=== PATIENT | male | born 1980 | race Hispanic/Latino ===

== ENCOUNTER 2021-09-15 18:33 | Emergency (ER) | payer MEDICARE ==
[2021-09-16] MEDS ORDERED: amLODIPine 5 MG TAB PO ONE (00:54)
--- NOTE | 2021-09-16 01:36 | Emergency Department Report ---
ED Medical Clearance HPI - General Chief complaint: Medical Clearance Stated complaint: HBP Time Seen by Provider: 09/16/21 00:53 Source: EMS Mode of arrival: Ambulatory - History of Present Illness Initial comments: Patient 41-year-old male with history of Hypertension and schizophrenia who presents for medical clearance for admission to [facility] for substance abuse treatment [facility]. Patient states noted hypertension upon admission screening tonight. Patient denies symptoms there is no chest pain or shortness of breath no nausea vomiting no dizziness or lightheadedness. Patient did not take amlodipine today which is his normal BP management. Patient does have a primary care doctor. MD Complaint: medical clearance request Home medications: Home Medications Medication Instructions Recorded Confirmed Last Taken Omeprazole [PriLOSEC] 07/04/15 Unknown Previous Rx's Medication Instructions Recorded Last Taken Type Ciprofloxacin HCl [Ciprofloxacin 500 mg PO Q12H #20 tab 08/05/15 Unknown Rx TAB] metroNIDAZOLE [Flagyl] 500 mg PO Q8HR #30 tablet 08/05/15 Unknown Rx HYDROcodone/APAP 5-325 [[place] 1 each PO Q6HR PRN #20 tablet 01/19/16 Unknown Rx 5-325 mg TAB] Omeprazole Magnesium [PriLOSEC] 10 mg PO QDAY #20 suspdr.pkt 01/19/16 Unknown Rx Promethazine [Phenergan] 25 mg PO Q6HR PRN #30 tab 01/19/16 Unknown Rx Allergies/Adverse reactions: Allergies Allergy/AdvReac Type Severity Reaction Status Date / Time diphenhydramine HCl Allergy Unknown Verified 07/04/15 17:21 [From Benadryl] ED Review of Systems ROS: Stated complaint: HBP Other details as noted in HPI Constitutional: denies: chills, fever Eyes: denies: eye pain, eye discharge, vision change ENT: denies: ear pain, throat pain Respiratory: denies: cough, shortness of breath, wheezing Cardiovascular: denies: chest pain, palpitations Endocrine: no symptoms reported Gastrointestinal: denies: abdominal pain, nausea, diarrhea Genitourinary: denies: urgency, dysuria Musculoskeletal: denies: back pain, joint swelling, arthralgia Skin: denies: rash, lesions Neurological: denies: headache, weakness, paresthesias, vertigo Psychiatric: as per HPI Hematological/Lymphatic: denies: easy bleeding, easy bruising ED Past Medical Hx - Past Medical History Previous Medical History?: Yes Hx Hypertension: Yes Hx Congestive Heart Failure: No Hx Diabetes: No Hx Asthma: No Hx COPD: No Hx HIV: No Additional medical history: pancreatitis, anemia GERD - Surgical History Past Surgical History?: Yes Hx Cholecystectomy: Yes - Social History Smoking Status: Current Some Day Smoker Substance Use Type: Alcohol, Marijuana - Medications Home Medications: Home Medications Medication Instructions Recorded Confirmed Last Taken Type Omeprazole [PriLOSEC] 07/04/15 Unknown History Ciprofloxacin HCl [Ciprofloxacin 500 mg PO Q12H #20 tab 08/05/15 Unknown Rx TAB] metroNIDAZOLE [Flagyl] 500 mg PO Q8HR #30 tablet 08/05/15 Unknown Rx HYDROcodone/APAP 5-325 [[place] 1 each PO Q6HR PRN #20 tablet 01/19/16 Unknown Rx 5-325 mg TAB] Omeprazole Magnesium [PriLOSEC] 10 mg PO QDAY #20 suspdr.pkt 01/19/16 Unknown Rx Promethazine [Phenergan] 25 mg PO Q6HR PRN #30 tab 01/19/16 Unknown Rx ED Physical Exam - General Limitations: No Limitations General appearance: alert, in no apparent distress - Head Head exam: Present: normocephalic, normal inspection - Eye Eye exam: Present: EOMI Pupils: Present: normal accommodation - ENT ENT exam: Present: mucous membranes moist - Neck Neck exam: Present: normal inspection, full ROM. Absent: tenderness, lymphadenopathy - Respiratory Respiratory exam: Present: normal lung sounds bilaterally. Absent: respiratory distress, wheezes, chest wall tenderness - Cardiovascular Cardiovascular Exam: Present: regular rate, normal rhythm, normal heart sounds. Absent: systolic murmur, diastolic murmur, rubs, gallop - GI/Abdominal GI/Abdominal exam: Present: soft, normal bowel sounds. Absent: distended, tenderness, guarding, rebound, rigid, bruit, hernia - Rectal Rectal exam: Present: deferred - Extremities Exam Extremities exam: Present: normal inspection, full ROM, normal capillary refill. Absent: tenderness - Back Exam Back exam: Present: normal inspection, full ROM. Absent: CVA tenderness (R), CVA tenderness (L) - Neurological Exam Neurological exam: Present: alert, oriented X3, CN II-XII intact, normal gait - Expanded Neurological Exam Expanded Patient oriented to: Present: person, place, time Speech: Present: fluid speech Best Eye Response (Felicity): (4) open spontaneously Best Motor Response (Felicity): (6) obeys commands Best Verbal Response (Felicity): (5) oriented Felicity Total: 15 - Psychiatric Psychiatric exam: Present: normal affect, normal mood - Skin Skin exam: Present: warm, dry, intact, normal color. Absent: rash ED Course Vital Signs 09/15/21 09/16/21 18:46 01:14 Temperature 98.8 F Pulse Rate 82 82 Respiratory 18 Rate Blood Pressure 123/91 Blood Pressure 140/90 [Right] O2 Sat by Pulse 99 Oximetry ED Medical Decision Making - Medical Decision Making This is asymptomatic hypertension. Patient advised to take medications as pres cribed. Patient advises that he has medication in his possession at [facility]. Patient has primary care doctor advised to follow-up with primary care doctor in 1 to 2 days. Patient verbalized agreement and understanding with discharge plan. Patient will be DC'd home in stable condition at this time. At present patient is alert oriented x3 amatory with steady gait has been no acute distress there is no chest pain or shortness of breath no dizziness no lightheadedness no fever or chills. ED Disposition Clinical Impression: Essential hypertension Disposition: 01 HOME / SELF CARE / HOMELESS Is pt being admited?: No Does the pt Need Aspirin: No Condition: Stable Instructions: Hypertension (ED), DASH Eating Plan, Managing Your Hypertension Additional Instructions: Take medications as prescribed, follow-up with your doctor in 1 to 2 days. Return to emergency department for symptoms worsen. Referrals: LISA BLEDSOE MD [Staff Physician] - 3-5 Days Forms: Work/School Release Form(ED) Time of Disposition: 01:38
[2021-09-16 02:05] VITALS: BP 140/90
== END 2021-09-16 02:05 | disposition home or self-care (01) ==
LOC: ED 18:33
DX: I10 Essential (primary) hypertension (principal); F17.200 Nicotine dependence, unspecified, uncomplicated; Z91.09 Other allergy status, other than to drugs and biological substances; Z79.899 Other long term (current) drug therapy
CPT/HCPCS: 99283

== ENCOUNTER 2021-10-10 09:46 | Inpatient (IN) | payer MEDICARE ==
[2021-10-10 12:02] LABS: Basophils % (Auto) 0.5 % (0.0-1.8); Eosinophils # (Auto) 0.1 K/mm3 (0.0-0.4); Hematocrit 36.6 % (35.5-45.6); Hemoglobin 12.4 gm/dl (11.8-15.2); Lymphocytes # (Auto) 0.9 K/mm3 (1.2-5.4); Lymphocytes % (Auto) 20.4 % (13.4-35.0); Mean Corpuscular HGB Conc 34 % (32-34); Mean Corpuscular Volume 84 fl (84-94); Monocytes # (Auto) 0.6 K/mm3 (0.0-0.8); Monocytes % (Auto) 13.1 % (0.0-7.3); Platelet Count 142 K/mm3 (140-440); Red Blood Count 4.37 M/mm3 (3.65-5.03); Red Cell Distribution Width 17.8 % (13.2-15.2)
[2021-10-10 12:28] LABS: Alanine Aminotransferase 14 units/L (7-56); BUN/Creatinine Ratio 11; Blood Urea Nitrogen 9 mg/dL (9-20); Calcium 8.9 mg/dL (8.4-10.2); Hemolysis Index 3
[2021-10-11] MEDS ORDERED: SODIUM CHLORIDE 0.9% 1000 ML 1,000 ML IV ONE ×2 (08:18→16:51)
[2021-10-11] MEDS ORDERED: metroNIDAZOLE/NS 500 MG/100 ML 500 MG/100 ML BAG IV ONE (15:38)
[2021-10-11] MEDS ORDERED: CEFEPIME/NS 2 GM/100 ML 2 GM/100 ML BAG IV ONE (15:38)
[2021-10-11] MEDS ORDERED: HYDROmorphone 1 MG/1 ML INJ IV ONE (15:39)
[2021-10-11] MEDS ORDERED: ONDANSETRON 4 MG/2 ML INJ IV ONE (15:39)
--- NOTE | 2021-10-11 16:32 | Cat Scan Report ---
CT abdomen pelvis w con INDICATION: abd pain 100ml of [id number] per pt Left sided abdomen/flank pain, has had history of pancreatitis befor e. COMPARISON: 06/02/2015 CT TECHNIQUE: Abdominal and pelvic CT exam performed. All CT scans at this location are performed using CT dose reduction for ALARA by means of automated exposure control. FINDINGS: CT ABDOMEN and PELVIS: Lung Bases: No significant abnormality. Liver: No significant abnormality. Biliary: No significant abnormality. Spleen: No significant abnormality. Pancreas: There are calcifications throughout the pancreatic parenchyma. The pancreatic duct is dilat ed within the head of the pancreas to the body measuring up to 7 mm in diameter. There is abrupt cut off of the dilation of the duct in the body, but there is more mild dilation seen within the tail of the pancreas. Note to atrophy. Pancreatic ductal dilation can be seen in setting of chronic pancreati tis. There is a surrounding multilobulated cystic collection seen superior to the pancreas extending to the lesser curvature of the stomach as seen on images 56-59 series 2. This collection appears to e xtend posteriorly and laterally posterior to the portal vein as well, image 56 of series 2. The colle ction measures approximately 5 cm in greatest dimension. Adrenals: No significant abnormality. Kidneys: No significant abnormality. Lymphatics: Only prominent loc hepatis and gastrohepatic lymph nodes, likely reactive. Vasculature: No significant abnormality. Bowel: Small sliding-type hiatal hernia. There is thickening of the rugae in the stomach with submuco darlene edema and mucosal hyperemia. Normal appendix. Diverticulosis without diverticulitis. Pelvis: No significant abnormality. Osseous Structures: No aggressive osseous lesion. Additional Findings: None IMPRESSION: 1. There is sequela of chronic pancreatitis with fluid collection seen superior to the pancreas which could represent a pseudocyst. Correlate clinically. Can obtain an EUS if indicated. If not, at least a follow to ensure stability is recommended. 2. Findings of possible gastritis which could be reactive. Signer Name: Carter Mcmillan MD Signed: 10/11/2021 4:27 PM Workstation Name: [id number]
--- NOTE | 2021-10-11 16:50 | Emergency Department Report ---
ED Abdominal Pain HPI - General Chief Complaint: Abdominal Pain Stated Complaint: ABD PAIN,NAUSEA/LEFT SIDE AND BACK PAIN PUI?: No Time Seen by Provider: 10/11/21 15:37 Source: patient Mode of arrival: Ambulatory Limitations: No Limitations - History of Present Illness Initial Comments: Patient is a 41-year-old male that comes to the emergency room complaining of severe left upper abdominal pain radiating to his back. He endorses nausea and vomiting. Patient does have a history of pancreatitis. He has not had any alcohol in over a month. However, he is diabetic. Patient is known to us and has been admitted here in the past. His medical history is also significant for hypertension and GERD. He denies diarrhea. He endorses chills but no fever. PCP Dr. Campos Home medications include Norvasc Omeprazole Cymbalta Gabapentin Magnesium Iron Creon which she has been out of for several months MD Complaint: abdominal pain -: Gradual, days(s) Location: LUQ Radiation: other Migration to: no migration (Left back) Severity scale (0 -10): 8 Consistency: constant Improves With: nothing Worsens With: nothing Associated Symptoms: denies other symptoms, nausea, vomiting. denies: diarrhea, fever, chills, constipation, dysuria, hematemesis, hematochezia, melena, hematur ia, anorexia, syncope - Related Data Home Medications Medication Instructions Recorded Confirmed Last Taken Omeprazole [PriLOSEC] 07/04/15 Unknown Previous Rx's Medication Instructions Recorded Last Taken Type Ciprofloxacin HCl [Ciprofloxacin 500 mg PO Q12H #20 tab 08/05/15 Unknown Rx TAB] metroNIDAZOLE [Flagyl] 500 mg PO Q8HR #30 tablet 08/05/15 Unknown Rx HYDROcodone/APAP 5-325 [[place] 1 each PO Q6HR PRN #20 tablet 01/19/16 Unknown Rx 5-325 mg TAB] Omeprazole Magnesium [PriLOSEC] 10 mg PO QDAY #20 suspdr.pkt 01/19/16 Unknown Rx Promethazine [Phenergan] 25 mg PO Q6HR PRN #30 tab 01/19/16 Unknown Rx Allergies Allergy/AdvReac Type Severity Reaction Status Date / Time diphenhydramine HCl Allergy Unknown Verified 07/04/15 17:21 [From Benadryl] ED Review of Systems ROS: Stated complaint: ABD PAIN,NAUSEA/LEFT SIDE AND BACK PAIN Other details as noted in HPI Comment: All other systems reviewed and negative ED Past Medical Hx - Past Medical History Previous Medical History?: Yes Hx Hypertension: Yes Hx CVA: No Hx Heart Attack/AMI: No Hx Congestive Heart Failure: No Hx Diabetes: No Hx Deep Vein Thrombosis: No Hx Pulmonary Embolism: No Hx GERD: Yes Hx Liver Disease: Yes Hx Renal Disease: No Hx of Cancer: No Hx Sickle Cell Disease: No Hx Arthritis: No Hx Headaches / Migraines: No Hx Seizures: No Hx Kidney Stones: No Hx Psychiatric Treatment: No Hx Asthma: No Hx COPD: No Hx Tuberculosis: No Hx Dementia: No Hx HIV: No Additional medical history: pancreatitis, anemia GERD - Surgical History Past Surgical History?: Yes Hx Cholecystectomy: Yes - Family History Family history: no significant - Social History Smoking Status: Current Every Day Smoker Substance Use Type: None - Medications Home Medications: Home Medications Medication Instructions Recorded Confirmed Last Taken Type Omeprazole [PriLOSEC] 07/04/15 Unknown History Ciprofloxacin HCl [Ciprofloxacin 500 mg PO Q12H #20 tab 08/05/15 Unknown Rx TAB] metroNIDAZOLE [Flagyl] 500 mg PO Q8HR #30 tablet 08/05/15 Unknown Rx HYDROcodone/APAP 5-325 [[place] 1 each PO Q6HR PRN #20 tablet 01/19/16 Unknown Rx 5-325 mg TAB] Omeprazole Magnesium [PriLOSEC] 10 mg PO QDAY #20 suspdr.pkt 01/19/16 Unknown Rx Promethazine [Phenergan] 25 mg PO Q6HR PRN #30 tab 01/19/16 Unknown Rx ED Physical Exam - General Limitations: No Limitations General appearance: alert, in no apparent distress - Head Head exam: Present: atraumatic, normocephalic - Eye Eye exam: Present: normal appearance - ENT ENT exam: Present: mucous membranes moist - Neck Neck exam: Present: normal inspection - Respiratory Respiratory exam: Present: normal lung sounds bilaterally. Absent: respiratory distress - Cardiovascular Cardiovascular Exam: Present: regular rate, normal rhythm. Absent: systolic murmur, diastolic murmur, rubs, gallop - GI/Abdominal GI/Abdominal exam: Present: soft, tenderness, normal bowel sounds - Rectal Rectal exam: Present: deferred - Extremities Exam Extremities exam: Present: normal inspection - Back Exam Back exam: Present: normal inspection - Neurological Exam Neurological exam: Present: alert, oriented X3 - Psychiatric Psychiatric exam: Present: normal affect, normal mood - Skin Skin exam: Present: warm, dry, intact, normal color. Absent: rash ED Course Vital Signs 10/10/21 10/11/21 10:48 08:01 Temperature 98.9 F 98.2 F Pulse Rate 90 87 Respiratory 14 18 Rate Blood Pressure 129/90 Blood Pressure 140/91 [Right] O2 Sat by Pulse 97 99 Oximetry ED Medical Decision Making - Lab Data Result diagrams: 10/10/21 11:39 10/10/21 11:39 - Radiology Data Radiology results: report reviewed, image reviewed see report - Medical Decision Making Vital Signs 10/10/21 10/11/21 10:48 08:01 Temperature 98.9 F 98.2 F Pulse Rate 90 87 Respiratory 14 18 Rate Blood Pressure 129/90 Blood Pressure 140/91 [Right] O2 Sat by Pulse 97 99 Oximetry Labs 10/10/21 10/10/21 11:39 11:39 WBC 4.6 RBC 4.37 Hgb 12.4 Hct 36.6 MCV 84 MCH 28 MCHC 34 RDW 17.8 H Plt Count 142 Lymph % (Auto) 20.4 [place] % (Auto) 13.1 H Eos % (Auto) 2.0 Baso % (Auto) 0.5 Lymph # (Auto) 0.9 L [place] # (Auto) 0.6 Eos # (Auto) 0.1 Baso # (Auto) 0.0 Seg Neutrophils % 64.0 Seg Neutrophils # 2.9 Sodium 138 Potassium 4.1 Chloride 101.8 Carbon Dioxide 27 Anion Gap 13 BUN 9 Creatinine 0.8 Estimated GFR > 60 BUN/Creatinine Ratio 11 Glucose 309 H Calcium 8.9 Total Bilirubin 0.20 AST 14 ALT 14 Alkaline Phosphatase 96 Total Protein 6.5 Albumin 4.0 Albumin/Globulin Ratio 1.6 Lipase 156 H Labs noted. Patient given a liter normal saline and Flagyl and cefepime per abdominal sepsis protocol. Patient medicated with Zofran for nausea. He has been given Dilaudid 1 mg for pain and is still complaining of pain [address] scan noted. Patient staffed with Dr. Sanchez. Patient being admitted for intractable abdominal pain. Orders placed. Patient to be kept NPO. Patient updated. - Differential Diagnosis pancreatitis Critical care attestation.: If time is entered above; I have spent that time in minutes in the direct care of this critically ill patient, excluding procedure time. ED Disposition Clinical Impression: Abdominal pain Qualifiers: Abdominal location: generalized Qualified Code(s): R10.84 - Generalized abdominal pain Acute pancreatitis Qualifiers: Pancreatitis type: other Nausea & vomiting Qualifiers: Vomiting type: unspecified Qualified Code(s): R11.2 - Nausea with vomiting, unspecified Disposition: 09 ADMITTED INPATIENT Is pt being admited?: Yes Does the pt Need Aspirin: No Condition: Stable Time of Disposition: 16:58
[2021-10-11] MEDS ORDERED: HYDROmorphone 1 MG/1 ML INJ IV PRN (16:52)
--- NOTE | 2021-10-11 22:51 | History and Physical Report ---
History of Present Illness Date of examination: 10/11/21 Date of admission: 10/11/2021 Chief complaint: Epigastric pain for 2 days History of present illness: 47-year-old male with history of recurrent pancreatitis since 2010 and pancreatic pseudocyst which was drained couple of years ago comes in for epigastric pain of 2 days duration. Associated with nausea. Pain is about 8 on a scale of 1-10 in nature. Patient was also tested for COVID-19 at urgent care center which was negative. Patient refused to have been drinking couple of times a week till 1 month ago. Patient states that he is alcohol free and wants to be alcohol free. - Past Medical History --Hypertension: Yes --GERD: Yes --Liver Disease: Yes --Additional medical history: pancreatitis, anemia GERD - Surgical History --Past Surgical History?: Yes --Cholecystectomy: Yes - Family History --Family history: no significant - Social History --Smoking Status: Current Every Day Smoker --Substance Use Type: None - Medications Home Medications: Home Medications Medication Instructions Recorded Confirmed Last Taken Type Omeprazole [PriLOSEC] 07/04/15 Unknown History Ciprofloxacin HCl [Ciprofloxacin 500 mg PO Q12H #20 tab 08/05/15 Unknown Rx TAB] metroNIDAZOLE [Flagyl] 500 mg PO Q8HR #30 tablet 08/05/15 Unknown Rx HYDROcodone/APAP 5-325 [[place] 1 each PO Q6HR PRN #20 tablet 01/19/16 Unknown Rx 5-325 mg TAB] Omeprazole Magnesium [PriLOSEC] 10 mg PO QDAY #20 suspdr.pkt 01/19/16 Unknown Rx Promethazine [Phenergan] 25 mg PO Q6HR PRN #30 tab 01/19/16 Unknown Rx Review of Systems ROS: Constitutional no weight loss or weight gain no fever or chills HEENT no sore throat no post nasal drip no diplopia Neck no neck stiffness no lymph gland enlargement Chest and lungs no shortness of breath cough or wheezing CVS no chest pain no diaphoresis no palpitations GI epigastric pain associated with nausea Genitourinary system no dysuria no flank pain Musculoskeletal system no muscle pains no joint pains [employer] no syncope no seizures Skin no rash no itching Psychiatric no depression no homicidal or suicidal tendencies Hematologic no lymphedema or bruising Endocrine no polydipsia no polyuria no cold intolerance no heat intolerance Medications and Allergies Allergies Allergy/AdvReac Type Severity Reaction Status Date / Time diphenhydramine HCl Allergy Unknown Verified 07/04/15 17:21 [From [facility]] Home Medications Medication Instructions Recorded Confirmed Last Taken Type Omeprazole [PriLOSEC] 07/04/15 Unknown History Ciprofloxacin HCl [Ciprofloxacin 500 mg PO Q12H #20 tab 08/05/15 Unknown Rx TAB] metroNIDAZOLE [Flagyl] 500 mg PO Q8HR #30 tablet 08/05/15 Unknown Rx HYDROcodone/APAP 5-325 [[place] 1 each PO Q6HR PRN #20 tablet 01/19/16 Unknown Rx 5-325 mg TAB] Omeprazole Magnesium [PriLOSEC] 10 mg PO QDAY #20 suspdr.pkt 01/19/16 Unknown Rx Promethazine [Phenergan] 25 mg PO Q6HR PRN #30 tab 01/19/16 Unknown Rx Active Meds: Active Medications Hydromorphone HCl (Hydromorphone 1 Mg/1 Ml Inj) 0.5 mg IV Q3H PRN PRN Reason: Pain, Moderate (4-6) Sodium Chloride (Nacl 0.9% 1000 Ml) 1,000 mls @ 125 mls/hr IV ONCE ONE Stop: 10/12/21 00:50 Sodium Chloride (Nacl 0.9% 1000 Ml) 1,000 mls @ 125 mls/hr IV DIRECT JOSHUA Exam - Constitutional Vitals: Temp Pulse Resp BP Pulse Ox 98.2 F 87 18 140/91 99 10/11/21 08:01 10/11/21 08:01 10/11/21 08:01 10/11/21 08:01 10/11/21 08:01 General appearance: Present: no acute distress, well-nourished - EENT Eyes: Present: PERRL ENT: hearing intact, clear oral mucosa - Neck Neck: Present: supple, normal ROM - Respiratory Respiratory effort: normal Respiratory: bilateral: CTA - Cardiovascular Heart rate: 78 Rhythm: regular Heart Sounds: Present: S1 & S2. Absent: rub, click - Extremities Extremities: pulses symmetrical, No edema Peripheral Pulses: within normal limits - Abdominal General gastrointestinal: Present: soft, tender, non-distended, normal bowel sounds Localized gastrointestinal: tender: diffuse, guarding: diffuse Male genitourinary: Present: normal - Integumentary Integumentary: Present: clear, warm, dry - Musculoskeletal Musculoskeletal: gait normal, strength equal bilaterally - Psychiatric Psychiatric: appropriate mood/affect, intact judgment & insight - Neurologic Neurologic: CNII-XII intact, moves all extremities Results - Labs CBC & Chem 7: 10/12/21 03:25 10/12/21 03:25 Labs: Laboratory Last Values WBC 4.6 K/mm3 (4.5-11.0) 10/10/21 11:39 RBC 4.37 M/mm3 (3.65-5.03) 10/10/21 11:39 Hgb 12.4 gm/dl (11.8-15.2) 10/10/21 11:39 Hct 36.6 % (35.5-45.6) 10/10/21 11:39 MCV 84 fl (84-94) 10/10/21 11:39 MCH 28 pg (28-32) 10/10/21 11:39 MCHC 34 % (32-34) 10/10/21 11:39 RDW 17.8 % (13.2-15.2) H 10/10/21 11:39 Plt Count 142 K/mm3 (140-440) 10/10/21 11:39 Lymph % (Auto) 20.4 % (13.4-35.0) 10/10/21 11:39 [place] % (Auto) 13.1 % (0.0-7.3) H 10/10/21 11:39 Eos % (Auto) 2.0 % (0.0-4.3) 10/10/21 11:39 Baso % (Auto) 0.5 % (0.0-1.8) 10/10/21 11:39 Lymph # (Auto) 0.9 K/mm3 (1.2-5.4) L 10/10/21 11:39 [place] # (Auto) 0.6 K/mm3 (0.0-0.8) 10/10/21 11:39 Eos # (Auto) 0.1 K/mm3 (0.0-0.4) 10/10/21 11:39 Baso # (Auto) 0.0 K/mm3 (0.0-0.1) 10/10/21 11:39 Seg Neutrophils % 64.0 % (40.0-70.0) 10/10/21 11:39 Seg Neutrophils # 2.9 K/mm3 (1.8-7.7) 10/10/21 11:39 Sodium 138 mmol/L (137-145) 10/10/21 11:39 Potassium 4.1 mmol/L (3.6-5.0) 10/10/21 11:39 Chloride 101.8 mmol/L (98-107) 10/10/21 11:39 Carbon Dioxide 27 mmol/L (22-30) 10/10/21 11:39 Anion Gap 13 mmol/L 10/10/21 11:39 BUN 9 mg/dL (9-20) 10/10/21 11:39 Creatinine 0.8 mg/dL (0.8-1.3) 10/10/21 11:39 Estimated GFR > 60 ml/min 10/10/21 11:39 BUN/Creatinine Ratio 11 % 10/10/21 11:39 Glucose 309 mg/dL (75-100) H 10/10/21 11:39 Calcium 8.9 mg/dL (8.4-10.2) 10/10/21 11:39 Total Bilirubin 0.20 mg/dL (0.1-1.2) 10/10/21 11:39 AST 14 units/L (5-40) 10/10/21 11:39 ALT 14 units/L (7-56) 10/10/21 11:39 Alkaline Phosphatase 96 units/L (35-129) 10/10/21 11:39 Total Protein 6.5 g/dL (6.3-8.2) 10/10/21 11:39 Albumin 4.0 g/dL (3.9-5) 10/10/21 11:39 Albumin/Globulin Ratio 1.6 % 10/10/21 11:39 Lipase 156 units/L (13-60) H 10/10/21 11:39 - Imaging and Cardiology Imaging and Cardiology: CT of the abdomen There is sequelae of chronic pancreatitis with fluid collection seen superior to the pancreas without finger accounting representative pseudocyst Assessment and Plan Advance Directives: Yes (Full code) VTE prophylaxis?: Chemical Plan of care discussed with patient/family: Yes - Patient Problems (1) Acute pancreatitis Current Visit: Yes Status: Acute Qualifiers: Pancreatitis type: unspecified pancreatitis type Plan to address problem: Patient has a history of alcoholism Stopped alcohol 1 month ago Clinical picture and imaging studies consistent with acute on chronic pancreatitis N.p.o. for now Pain management (2) Hyperglycemia Current Visit: Yes Status: Acute Plan to address problem: Coverage and check hemoglobin A1c (3) DVT prophylaxis Current Visit: Yes Status: Acute Plan to address problem: On heparin and GI prophylaxis (4) Advance care planning Current Visit: Yes Status: Acute Plan to address problem: Disease education conducted, care plan discussed, diagnosis discussed. Prognosis discussed. Patient acknowledged understanding and is 30 minutes.
[2021-10-11] MEDS ORDERED: ACETAMINOPHEN 325 MG TAB PO PRN (22:54)
[2021-10-11] MEDS ORDERED: METOCLOPRAMIDE 10 MG/2 ML INJ IV PRN (22:54)
[2021-10-11] MEDS: HEPARIN 5,000 UNIT/1 ML VIAL SUB-Q SCH (23:19)
[2021-10-11] MEDS: ONDANSETRON 4 MG/2 ML INJ IV PRN (23:20)
[2021-10-11] MEDS: HYDROmorphone 0.5 MG/0.5 ML INJ IV PRN (23:20)
[2021-10-12] MEDS ORDERED: INSULIN LISPRO 100 UNIT/ML SUB-Q ONE (00:35)
[2021-10-12 04:01] LABS: Basophils % (Auto) 0.5 % (0.0-1.8); Eosinophils # (Auto) 0.1 K/mm3 (0.0-0.4); Eosinophils % (Auto) 2.7 % (0.0-4.3); Hematocrit 36.5 % (35.5-45.6); Hemoglobin 12.2 gm/dl (11.8-15.2); Lymphocytes # (Auto) 1.1 K/mm3 (1.2-5.4); Lymphocytes % (Auto) 26.4 % (13.4-35.0); Mean Corpuscular HGB Conc 34 % (32-34); Mean Corpuscular Volume 84 fl (84-94); Monocytes # (Auto) 0.5 K/mm3 (0.0-0.8); Monocytes % (Auto) 11.6 % (0.0-7.3); Platelet Count 141 K/mm3 (140-440); Red Blood Count 4.36 M/mm3 (3.65-5.03)
[2021-10-12 04:18] LABS: Alanine Aminotransferase 10 units/L (7-56); Albumin 3.7 g/dL (3.9-5); Blood Urea Nitrogen 9 mg/dL (9-20); Calcium 8.9 mg/dL (8.4-10.2); Hemolysis Index 7
[2021-10-12 04:19] LABS: BUN/Creatinine Ratio 15
[2021-10-12] MEDS: ONDANSETRON 4 MG/2 ML INJ IV PRN (08:03)
[2021-10-12] MEDS: HYDROmorphone 0.5 MG/0.5 ML INJ IV PRN ×3 (08:04→21:11)
[2021-10-12] MEDS: SODIUM CHLORIDE 0.9% 1000 ML 1,000 ML IV SCH ×2 (08:05→17:42)
[2021-10-12] MEDS: HEPARIN 5,000 UNIT/1 ML VIAL SUB-Q SCH ×2 (10:14→21:11)
--- NOTE | 2021-10-12 13:53 | Consultation ---
History of Present Illness Consult date: 10/12/21 Reason for consult: abdominal pain - History of present illness History of present illness: 47-year-old male with history of recurrent pancreatitis since 2010 and pancreatic pseudocyst which was drained 2019 comes in for epigastric pain of 2 days duration. Associated with nausea. Pain is about 8 on a scale of 1-10 in nature. Patient was also tested for COVID-19 at urgent care center which was negative. Patient refused to have been drinking couple of times a week till 1 month ago. Patient states that he is alcohol free and wants to be alcohol free. He states that he had gallstone pancreatitis in the past and had a LC about 2014. CT of abdo with pancreatitis and new pseudocyst in the tail of the pancrease. Medications and Allergies Allergies Allergy/AdvReac Type Severity Reaction Status Date / Time diphenhydramine HCl Allergy Unknown Verified 07/04/15 17:21 [From [facility]] Home Medications Medication Instructions Recorded Confirmed Last Taken Type Omeprazole [PriLOSEC] 07/04/15 Unknown History Ciprofloxacin HCl [Ciprofloxacin 500 mg PO Q12H #20 tab 08/05/15 Unknown Rx TAB] metroNIDAZOLE [Flagyl] 500 mg PO Q8HR #30 tablet 08/05/15 Unknown Rx HYDROcodone/APAP 5-325 [[place] 1 each PO Q6HR PRN #20 tablet 01/19/16 Unknown Rx 5-325 mg TAB] Omeprazole Magnesium [PriLOSEC] 10 mg PO QDAY #20 suspdr.pkt 01/19/16 Unknown Rx Promethazine [Phenergan] 25 mg PO Q6HR PRN #30 tab 01/19/16 Unknown Rx Active Meds: Active Medications Acetaminophen (Acetaminophen 325 Mg Tab) 650 mg PO Q4H PRN PRN Reason: Pain MILD(1-3)/Fever >100.5/MELENDEZ Heparin Sodium (Porcine) (Heparin 5,000 Unit/1 Ml Vial) 5,000 unit SUB-Q Q12HR JOSHUA Last Admin: 10/12/21 10:14 Dose: 5,000 unit Hydromorphone HCl (Hydromorphone 1 Mg/1 Ml Inj) 0.5 mg IV Q3H PRN PRN Reason: Pain, Moderate (4-6) Hydromorphone HCl (Hydromorphone 0.5 Mg/0.5 Ml Inj) 1 mg IV Q3H PRN PRN Reason: Pain , Severe (7-10) Last Admin: 10/12/21 13:02 Dose: 1 mg Sodium Chloride (Nacl 0.9% 1000 Ml) 1,000 mls @ 125 mls/hr IV DIRECT JOSHUA Last Admin: 10/12/21 08:05 Dose: 125 mls/hr Metoclopramide HCl (Metoclopramide 10 Mg/2 Ml Inj) 10 mg IV Q6H PRN PRN Reason: Nausea And Vomiting Last Admin: 10/11/21 23:20 Dose: 10 mg Ondansetron HCl (Ondansetron 4 Mg/2 Ml Inj) 4 mg IV Q3H PRN PRN Reason: Nausea And Vomiting Last Admin: 10/12/21 08:03 Dose: 4 mg Oxycodone/Acetaminophen (Oxycodone /Acetaminophen 5-325mg Tab) 1 tab PO Q6H PRN PRN Reason: Pain, Moderate (4-6) Sodium Chloride (Sodium Chloride 0.9% 10 Ml Flush Syringe) 10 ml IV BID [facility] Last Admin: 10/12/21 10:15 Dose: 10 ml Sodium Chloride (Sodium Chloride 0.9% 10 Ml Flush Syringe) 10 ml IV PRN PRN PRN Reason: LINE FLUSH Exam Vital Signs Temp Pulse Resp BP Pulse Ox 98.9 F 90 14 129/90 97 10/10/21 10:48 10/10/21 10:48 10/10/21 10:48 10/10/21 10:48 10/10/21 10:48 - General physical appearance Positive: well developed, no distress - Eyes Positive: PERRL - Neck Positive: no masses, no bruits, trachea midline - Respiratory Positive: normal expansion - Cardiovascular Rhythm: regular - Extremities Extremities: no ischemia, No edema - Abdomen Abdomen: Present: soft, tender, bowel sounds normal, wound (Upper midline wund pt states is from open cyst gastrostomy). Absent: distended, guarding, rigid Hernia: none - Neurologic Neurologic: alert and oriented to time, place and person, motor strength and sensation are grossly intact, CN II-XII intact Results - Labs 10/12/21 03:25 10/12/21 03:25 Abnormal lab results 10/12/21 10/12/21 Range/Units 03:25 03:25 WBC 4.2 L (4.5-11.0) K/mm3 RDW 18.0 H (13.2-15.2) % Lane % (Auto) 11.6 H (0.0-7.3) % Lymph # (Auto) 1.1 L (1.2-5.4) K/mm3 Creatinine 0.6 L (0.8-1.3) mg/dL Glucose 126 H (75-100) mg/dL Albumin 3.7 L (3.9-5) g/dL Diabetes panel 10/12/21 Range/Units 03:25 Sodium 141 (137-145) mmol/L Potassium 4.1 (3.6-5.0) mmol/L Chloride 103.3 (98-107) mmol/L Carbon Dioxide 27 (22-30) mmol/L BUN 9 (9-20) mg/dL Creatinine 0.6 L (0.8-1.3) mg/dL Glucose 126 H (75-100) mg/dL Calcium 8.9 (8.4-10.2) mg/dL AST 13 (5-40) units/L ALT 10 (7-56) units/L Alkaline Phosphatase 79 (35-129) units/L Total Protein 6.8 (6.3-8.2) g/dL Albumin 3.7 L (3.9-5) g/dL Calcium panel 10/12/21 Range/Units 03:25 Calcium 8.9 (8.4-10.2) mg/dL Albumin 3.7 L (3.9-5) g/dL Pituitary panel 10/12/21 Range/Units 03:25 Sodium 141 (137-145) mmol/L Potassium 4.1 (3.6-5.0) mmol/L Chloride 103.3 (98-107) mmol/L Carbon Dioxide 27 (22-30) mmol/L BUN 9 (9-20) mg/dL Creatinine 0.6 L (0.8-1.3) mg/dL Glucose 126 H (75-100) mg/dL Calcium 8.9 (8.4-10.2) mg/dL Adrenal panel 10/12/21 Range/Units 03:25 Sodium 141 (137-145) mmol/L Potassium 4.1 (3.6-5.0) mmol/L Chloride 103.3 (98-107) mmol/L Carbon Dioxide 27 (22-30) mmol/L BUN 9 (9-20) mg/dL Creatinine 0.6 L (0.8-1.3) mg/dL Glucose 126 H (75-100) mg/dL Calcium 8.9 (8.4-10.2) mg/dL Total Bilirubin 0.40 (0.1-1.2) mg/dL AST 13 (5-40) units/L ALT 10 (7-56) units/L Alkaline Phosphatase 79 (35-129) units/L Total Protein 6.8 (6.3-8.2) g/dL Albumin 3.7 L (3.9-5) g/dL Assessment and Plan CT of abdo with pancreatitis and new pseudocyst in the tail of the pancrease. Cont npo, ivf, consider GI consultation. No surgical options available at this time.
[2021-10-12] MEDS: FAMOTIDINE 20 MG/2 ML INJ IV SCH ×2 (17:35→21:11)
[2021-10-13] MEDS: SODIUM CHLORIDE 0.9% 1000 ML 1,000 ML IV SCH ×2 (01:24→17:53)
[2021-10-13] MEDS: HYDROmorphone 0.5 MG/0.5 ML INJ IV PRN ×5 (01:27→22:15)
--- NOTE | 2021-10-13 08:39 | Progress Note ---
Assessment and Plan - Patient Problems (1) Acute pancreatitis Current Visit: Yes Status: Acute Qualifiers: Pancreatitis type: unspecified pancreatitis type Plan to address problem: Patient has a history of alcoholism Stopped alcohol 1 month ago Clinical picture and imaging studies consistent with acute on chronic pancrea titis N.p.o. for now Pain management (2) Hyperglycemia Current Visit: Yes Status: Acute Plan to address problem: Coverage and check hemoglobin A1c (3) DVT prophylaxis Current Visit: Yes Status: Acute Plan to address problem: On heparin and GI prophylaxis (4) Advance care planning Current Visit: Yes Status: Acute Plan to address problem: Disease education conducted, care plan discussed, diagnosis discussed. P rognosis discussed. Patient acknowledged understanding and is 30 minutes. Subjective Date of service: 10/12/21 Objective - Constitutional Vitals: Vital Signs - 12hr 10/12/21 10/13/21 10/13/21 22:11 00:00 03:09 Temperature 97.9 F 97.5 F L Pulse Rate 57 L 70 Respiratory 16 16 Rate Blood Pressure 130/94 141/85 O2 Sat by Pulse 100 98 99 Oximetry 10/13/21 07:48 Temperature Pulse Rate Respiratory 18 Rate Blood Pressure O2 Sat by Pulse 97 Oximetry General appearance: Present: no acute distress, well-nourished - EENT Eyes: PERRL, EOM intact ENT: hearing intact, clear oral mucosa Ears: bilateral: normal - Neck Neck: supple, normal ROM - Respiratory Respiratory effort: normal Respiratory: bilateral: CTA - Breasts Breasts: normal - Cardiovascular Rhythm: regular Heart Sounds: Present: S1 & S2. Absent: gallop, rub Extremities: pulses intact, No edema, normal color, Full ROM - Gastrointestinal General gastrointestinal: Present: soft, non-tender, non-distended, normal bowel sounds - Genitourinary Male genitourinary: normal - Integumentary Integumentary: clear, warm, dry - Musculoskeletal Musculoskeletal: 1, strength equal bilaterally - Neurologic Neurologic: moves all extremities - Psychiatric Psychiatric: memory intact, appropriate mood/affect, intact judgment & insight - Labs CBC & Chem 7: 10/12/21 03:25 10/12/21 03:25
[2021-10-13] MEDS: FAMOTIDINE 20 MG/2 ML INJ IV SCH ×2 (09:26→21:44)
[2021-10-13] MEDS: HEPARIN 5,000 UNIT/1 ML VIAL SUB-Q SCH ×2 (09:26→21:44)
[2021-10-13] MEDS: ONDANSETRON 4 MG/2 ML INJ IV PRN (09:39)
[2021-10-14] MEDS: HYDROmorphone 0.5 MG/0.5 ML INJ IV PRN ×7 (02:00→23:25)
[2021-10-14] MEDS: SODIUM CHLORIDE 0.9% 1000 ML 1,000 ML IV SCH ×4 (02:07→16:54)
[2021-10-14] MEDS: FAMOTIDINE 20 MG/2 ML INJ IV SCH ×2 (09:32→22:33)
[2021-10-14] MEDS: HEPARIN 5,000 UNIT/1 ML VIAL SUB-Q SCH ×2 (09:32→22:34)
--- NOTE | 2021-10-14 11:06 | Progress Note ---
Assessment and Plan CT of abdo with pancreatitis and new pseudocyst in the tail of the pancrease. Lipase is normal at this time. Patient's pain is improved. Okay to advance to diabetic diet at this time. Also appropriate to consider discharging patient fo r follow-up with a pancreatic surgeon. Subjective Date of service: 10/14/21 Patient Reports: Positive: feels better, still having pain Objective Vital Signs - 12hr 10/13/21 10/14/21 10/14/21 23:24 04:04 08:10 Temperature 98.3 F 97.7 F 97.5 F L Pulse Rate 55 L 54 L 60 Respiratory 15 16 18 Rate Blood Pressure 128/88 143/91 139/102 O2 Sat by Pulse 96 98 100 Oximetry - Labs 10/12/21 03:25 10/12/21 03:25
[2021-10-14] MEDS: ONDANSETRON 4 MG/2 ML INJ IV PRN (12:54)
[2021-10-15] MEDS: SODIUM CHLORIDE 0.9% 1000 ML 1,000 ML IV SCH ×3 (00:38→14:18)
[2021-10-15] MEDS: HYDROmorphone 0.5 MG/0.5 ML INJ IV PRN ×6 (02:59→23:55)
--- NOTE | 2021-10-15 07:51 | Progress Note ---
Assessment and Plan - Patient Problems (1) Acute pancreatitis Current Visit: Yes Status: Acute Qualifiers: Pancreatitis type: unspecified pancreatitis type Plan to address problem: Patient has a history of alcoholism Stopped alcohol 1 month ago Clinical picture and imaging studies consistent with acute on chronic pancrea titis N.p.o. for now Pain management (2) Hyperglycemia Current Visit: Yes Status: Acute Plan to address problem: Coverage and check hemoglobin A1c (3) DVT prophylaxis Current Visit: Yes Status: Acute Plan to address problem: On heparin and GI prophylaxis (4) Advance care planning Current Visit: Yes Status: Acute Plan to address problem: Disease education conducted, care plan discussed, diagnosis discussed. P rognosis discussed. Patient acknowledged understanding and is 30 minutes. Subjective Date of service: 10/14/21 Objective - Constitutional Vitals: Vital Signs - 12hr 10/14/21 23:00 Respiratory 18 Rate O2 Sat by Pulse 98 Oximetry General appearance: Present: no acute distress, well-nourished - EENT Eyes: PERRL, EOM intact ENT: hearing intact, clear oral mucosa Ears: bilateral: normal - Neck Neck: supple, normal ROM - Respiratory Respiratory effort: normal Respiratory: bilateral: CTA - Breasts Breasts: normal - Cardiovascular Rhythm: regular Heart Sounds: Present: S1 & S2. Absent: gallop, rub Extremities: pulses intact, No edema, normal color, Full ROM - Gastrointestinal General gastrointestinal: Present: soft, non-tender, non-distended, normal bowel sounds - Genitourinary Male genitourinary: normal - Integumentary Integumentary: clear, warm, dry - Musculoskeletal Musculoskeletal: 1, strength equal bilaterally - Neurologic Neurologic: moves all extremities - Psychiatric Psychiatric: memory intact, appropriate mood/affect, intact judgment & insight - Labs CBC & Chem 7: 10/12/21 03:25 10/12/21 03:25 Labs: Abnormal lab results 10/14/21 10/14/21 10/14/21 Range/Units 08:10 12:06 16:45 POC Glucose 144 H 126 H 109 H (70-105) mg/dL 10/14/21 10/15/21 Range/Units 22:57 07:40 POC Glucose 115 H 112 H (70-105) mg/dL
--- NOTE | 2021-10-15 10:29 | Progress Note ---
Assessment and Plan CT of abdo with pancreatitis and new pseudocyst in the tail of the pancrease. Lipase is normal at this time. Patient has tried is soft diet this morning. He denied any increasing pain in the pancreatic area. He does have some unusual p ain in the left subcostal area. There is also continued back pain. There is also generalized feeling of weakness. Patient states that he did test positive for COVID as an outpatient about a month ago. He also states that about a week ago he had a vaccination for COVID. This was his first. Consider retesting the patient at this time. Also appropriate to consider discharging patient for follow-up with a pancreatic surgeon. Subjective Date of service: 10/15/21 Patient Reports: Positive: still having pain Narrative: Patient has tried is soft diet this morning. He denied any increasing pain in the pancreatic area. He does have some unusual pain in the left subcostal area. There is also continued back pain. There is also generalized feeling of weakness. Patient states that he did test positive for COVID as an outpatient about a month ago. He also states that about a week ago he had a vaccination for COVID. This was his first. Consider retesting the patient at this time. Objective Vital Signs - 12hr 10/14/21 10/15/21 10/15/21 23:00 06:41 07:42 Temperature 97.7 F Pulse Rate 55 L 72 Respiratory 18 18 Rate Blood Pressure 140/89 143/93 O2 Sat by Pulse 98 100 100 Oximetry - Labs 10/12/21 03:25 10/12/21 03:25
[2021-10-15] MEDS: HEPARIN 5,000 UNIT/1 ML VIAL SUB-Q SCH ×2 (10:37→21:01)
[2021-10-15] MEDS: FAMOTIDINE 20 MG TAB PO SCH ×2 (10:38→21:01)
--- NOTE | 2021-10-15 22:40 | Progress Note ---
Assessment and Plan - Patient Problems (1) Acute pancreatitis Current Visit: Yes Status: Acute Qualifiers: Pancreatitis type: unspecified pancreatitis type Plan to address problem: Patient has a history of alcoholism Stopped alcohol 1 month ago Clinical picture and imaging studies consistent with acute on chronic pancrea titis N.p.o. for now Pain management (2) Hyperglycemia Current Visit: Yes Status: Acute Plan to address problem: Coverage and check hemoglobin A1c (3) DVT prophylaxis Current Visit: Yes Status: Acute Plan to address problem: On heparin and GI prophylaxis (4) Advance care planning Current Visit: Yes Status: Acute Plan to address problem: Disease education conducted, care plan discussed, diagnosis discussed. P rognosis discussed. Patient acknowledged understanding and is 30 minutes. Subjective Date of service: 10/15/21 Objective - Constitutional Vitals: Vital Signs - 12hr 10/15/21 10/15/21 10/15/21 11:00 11:37 16:11 Temperature 97.6 F 97.6 F Pulse Rate 63 58 L Respiratory 18 18 18 Rate Blood Pressure 144/88 149/93 O2 Sat by Pulse 100 100 99 Oximetry 10/15/21 19:28 Temperature 97.6 F Pulse Rate 60 Respiratory 16 Rate Blood Pressure 147/94 O2 Sat by Pulse 97 Oximetry General appearance: Present: no acute distress, well-nourished - EENT Eyes: PERRL, EOM intact ENT: hearing intact, clear oral mucosa Ears: bilateral: normal - Neck Neck: supple, normal ROM - Respiratory Respiratory effort: normal Respiratory: bilateral: CTA - Breasts Breasts: normal - Cardiovascular Rhythm: regular Heart Sounds: Present: S1 & S2. Absent: gallop, rub Extremities: pulses intact, No edema, normal color, Full ROM - Gastrointestinal General gastrointestinal: Present: soft, non-tender, non-distended, normal bowel sounds - Genitourinary Male genitourinary: normal - Integumentary Integumentary: clear, warm, dry - Musculoskeletal Musculoskeletal: 1, strength equal bilaterally - Neurologic Neurologic: moves all extremities - Psychiatric Psychiatric: memory intact, appropriate mood/affect, intact judgment & insight - Labs CBC & Chem 7: 10/12/21 03:25 10/12/21 03:25 Labs: Abnormal lab results 10/14/21 10/15/21 10/15/21 Range/Units 22:57 07:40 11:35 POC Glucose 115 H 112 H 126 H (70-105) mg/dL 10/15/21 10/15/21 Range/Units 16:13 20:09 POC Glucose 160 H 166 H (70-105) mg/dL
--- NOTE | 2021-10-15 22:42 | Discharge Summary ---
Providers - Providers Date of Admission: 10/11/21 22:54 Date of discharge: 10/16/21 Attending physician: ROBB ECHEVERRIA 10/11/21 23:15 Consult to Physician [CONS] Routine Comment: Consulting Provider: ADINA BENOIT Physician Instructions: Reason For Exam: Pseudocyst of pancreas Primary care physician: [employer]ES LEADER Hospitalization Condition: Stable Disposition: 30 STILL A PATIENT - Discharge Diagnoses (1) Acute pancreatitis Status: Acute Qualifiers: Pancreatitis type: unspecified pancreatitis type (2) Hyperglycemia Status: Acute (3) DVT prophylaxis Status: Acute (4) Advance care planning Status: Acute Exam - Constitutional Vitals: Temp Pulse Resp BP Pulse Ox 97.6 F 60 16 147/94 97 10/15/21 19:28 10/15/21 19:28 10/15/21 19:28 10/15/21 19:28 10/15/21 19:28 Plan Follow up with: PRIMARY MD ANITA [Primary Care Provider] - 3-5 Days
[2021-10-16] MEDS: SODIUM CHLORIDE 0.9% 1000 ML 1,000 ML IV SCH ×2 (00:01→05:33)
[2021-10-16] MEDS: HYDROmorphone 0.5 MG/0.5 ML INJ IV PRN ×3 (03:07→10:30)
[2021-10-16] MEDS: oxyCODONE /ACETAMINOPHEN 5-325MG TAB PO PRN ×2 (05:05→13:17)
--- NOTE | 2021-10-16 07:19 | Progress Note ---
Assessment and Plan CT of abdo with pancreatitis and new pseudocyst in the tail of the pancrease. Lipase is normal at this time. Patient has tried is soft diet this morning. He denied any increasing pain in the pancreatic area. He does have some unusual p ain in the left subcostal area. There is also continued back pain. There is also generalized feeling of weakness. Patient states that he did test positive for COVID as an outpatient about a month ago. He also states that about a week ago he had a vaccination for COVID. This was his first. Consider retesting the patient at this time. Also appropriate to consider discharging patient for follow-up with a pancreatic surgeon. Subjective Date of service: 10/16/21 Patient Reports: Positive: no new complaints, still having pain, pain is less, tolerating a regular diet Objective Vital Signs - 12hr 10/15/21 10/15/21 10/15/21 19:28 22:55 23:13 Temperature 97.6 F 97.9 F Pulse Rate 60 72 Respiratory 16 20 18 Rate Respiratory 20 Rate [Abdomen] Blood Pressure 147/94 144/104 O2 Sat by Pulse 97 97 99 Oximetry 10/16/21 04:46 Temperature 97.5 F L Pulse Rate 61 Respiratory 16 Rate Respiratory Rate [Abdomen] Blood Pressure 133/84 O2 Sat by Pulse 100 Oximetry - Labs 10/12/21 03:25 10/12/21 03:25
[2021-10-16 08:28] VITALS: BP 139/95
--- NOTE | 2021-10-16 08:52 | Cat Scan Report ---
CT abdomen wo con INDICATION / CLINICAL INFORMATION: pancreatitic/cyst. TECHNIQUE: CT abdomen without contrast All CT scans at this location are performed using CT dose reduction for A YAHAIRA by means of automated exposure control. COMPARISON: 10/11/2021. FINDINGS: ABDOMEN: Given differences in technique there has no significant interval change since 10/11/2021. The pseudocyst collection identified just anterior and superior to the head of the pancreas has slightly decreased in size now measuring 1.7 cm previously about 2 cm in greatest diameter. There is again co arse calcifications throughout the pancreas consistent with sequela of chronic pancreatitis. The main pancreatic duct appears unchanged. The liver, spleen adrenal glands and kidneys appear unchanged. Pr ior cholecystectomy IMPRESSION: Perhaps slight interval decrease in size of the peripancreatic collection when compared t o 10/11/2021 given differences in technique. Signer Name: Satish Johns MD Signed: 10/16/2021 8:48 AM Workstation Name: [id number]
[2021-10-16] MEDS: HEPARIN 5,000 UNIT/1 ML VIAL SUB-Q SCH (10:30)
[2021-10-16] MEDS: FAMOTIDINE 20 MG TAB PO SCH (10:30)
== END 2021-10-16 13:15 | disposition home or self-care (01) | DRG 439 ==
LOC: ED 09:46 → 3A 10-11 22:54 → 4A 10-12 05:52
PROVIDERS: ADMIT Internal Medicine; ATTEND Internal Medicine
DX: K85.90 Acute pancreatitis without necrosis or infection, unspecified (principal); K86.3 Pseudocyst of pancreas; R73.9 Hyperglycemia, unspecified; I10 Essential (primary) hypertension; K21.9 Gastro-esophageal reflux disease without esophagitis; F17.200 Nicotine dependence, unspecified, uncomplicated; Z90.49 Acquired absence of other specified parts of digestive tract; Z88.8 Allergy status to other drugs, medicaments and biological substances
CPT/HCPCS: 36415; 74150; 74177; 80053; 82962; 83690; 85025; 87040; 99406; G0378; J3490; J7517; J0692; J1170; J1644; J2405; J2765; J7030; Q9967

== ENCOUNTER 2021-11-03 10:43 | Emergency (ER) | payer MEDICARE ==
[2021-11-03 12:53] LABS: Alanine Aminotransferase 16 units/L (7-56); Albumin 4.1 g/dL (3.9-5); Blood Urea Nitrogen 7 mg/dL (9-20); Calcium 9.4 mg/dL (8.4-10.2); Hemolysis Index 8
[2021-11-03 12:55] LABS: BUN/Creatinine Ratio 10
[2021-11-03 13:06] LABS: Hematocrit 41.4 % (35.5-45.6); Hemoglobin 13.4 gm/dl (11.8-15.2); Mean Corpuscular HGB Conc 33 % (32-34); Mean Corpuscular Volume 86 fl (84-94); Platelet Count 134 K/mm3 (140-440); Red Blood Count 4.81 M/mm3 (3.65-5.03); Red Cell Distribution Width 18.1 % (13.2-15.2)
[2021-11-03] MEDS ORDERED: ALUM-MAG HYDROXIDE-SIMETHICONE 200-200-20MG/5ML ORAL LIQD 30 ML PO ONE (14:15)
[2021-11-03] MEDS ORDERED: SODIUM CHLORIDE 0.9% 1000 ML 1,000 ML IV ONE (14:15)
[2021-11-03] MEDS ORDERED: PANTOPRAZOLE 40 MG INJ IV ONE (14:15)
[2021-11-03] MEDS ORDERED: LIDOCAINE VISCOUS 2% 15 ML ORAL LIQD PO ONE (14:15)
[2021-11-04] MEDS ORDERED: PANTOPRAZOLE 40 MG INJ IV ONE (03:28)
[2021-11-04] MEDS ORDERED: HALOPERIDOL LACTATE 5 MG/1 ML INJ IM STA (03:28)
[2021-11-04] MEDS ORDERED: LACTATED RINGERS 1,000 ML IV ONE (03:29)
--- NOTE | 2021-11-04 03:29 | Emergency Department Report ---
ED General Adult HPI - General Chief complaint: Abdominal Pain Stated complaint: Abdominal pain Time Seen by Provider: 11/03/21 14:14 Source: patient, RN notes reviewed, old records reviewed Mode of arrival: Ambulatory Limitations: No Limitations - History of Present Illness Initial comments: The patient was evaluated in the emergency department for symptoms described in the history of present illness. He/she was evaluated in the context of the global COVID-19 pandemic, which necessitated consideration that the patient might be at risk for infection with the virus that causes COVID-19. Institutional protocols and algorithms that pertain to the evaluation of patients at risk for COVID-19 are in a state of rapid change based on information released by regulatory bodies including the CDC and federal and state organizations. These policies and algorithms were followed during the patient's care in the emergency department. Please note that these policies, procedures and recommendations changed on a rapid basis. This is a 41-year-old gentleman with a known history of chronic pancreatitis and possible pancreatic pseudocyst. He also has a history of diabetes. He reports he has been abstinent from alcohol for about a month to a month and a half. He was discharged from this hospital last month for chronic pancreatitis with pseudocyst. He complains of left-sided abdominal pain and suprapubic abdominal pain. He denies testicular pain. He is not sure if he is having dysuria. He reports that he has had nausea and vomiting. He reports only Dilaudid makes his pain feel better. He reports morphine does not work for him. No additional injuries or complaints. -: Gradual, days(s) Location: abdomen Severity scale (0 -10): 8 Quality: sharp Consistency: constant Improves with: medication Worsens with: other (Palpation) - Related Data Home Medications Medication Instructions Recorded Confirmed Last Taken Magnesium Oxide [Magnesium] 400 mg PO QDAY 10/14/21 10/14/21 10/10/21 Previous Rx's Medication Instructions Recorded Last Taken Type Duloxetine HCl [Cymbalta] 60 mg PO QDAY 30 Days #30 10/15/21 Unknown Rx Gabapentin 300 mg PO TID #90 cap 10/15/21 Unknown Rx Insulin Detemir [Levemir Flextouch] 20 unit SQ HS 75 Days #5 pen 10/15/21 Unknown Rx amLODIPine 5 mg PO DAILY 30 Days #30 10/15/21 Unknown Rx traZODone [Desyrel] 50 mg PO QHS 30 Days #30 10/15/21 Unknown Rx Metoclopramide [Reglan] 10 mg PO QID PRN #30 tablet 11/04/21 Unknown Rx Pantoprazole [Protonix TAB] 40 mg PO QDAY 30 Days #30 tab 11/04/21 Unknown Rx oxyCODONE /ACETAMINOPHEN [Percocet 1 tab PO Q6H PRN #9 tablet 11/04/21 Unknown Rx 5/325 mg] Allergies Allergy/AdvReac Type Severity Reaction Status Date / Time diphenhydramine HCl Allergy Itching Verified 11/03/21 11:30 [From Benadryl] atropine AdvReac "Changes Verified 11/03/21 11:30 colors" ED Review of Systems ROS: Stated complaint: ? PANCREATITIS/DIABETIC/PROSTATE Other details as noted in HPI Constitutional: denies: fever Eyes: denies: eye discharge ENT: denies: epistaxis Respiratory: denies: cough Cardiovascular: denies: chest pain Gastrointestinal: abdominal pain, nausea, vomiting Genitourinary: as per HPI. denies: testicular pain Hematological/Lymphatic: denies: easy bleeding ED Past Medical Hx - Past Medical History Hx Hypertension: Yes Hx CVA: No Hx Heart Attack/AMI: No Hx Congestive Heart Failure: No Hx Diabetes: No Hx Deep Vein Thrombosis: No Hx Pulmonary Embolism: No Hx GERD: Yes Hx Liver Disease: Yes Hx Renal Disease: No Hx Sickle Cell Disease: No Hx Arthritis: No Hx Headaches / Migraines: No Hx Seizures: No Hx Kidney Stones: No Hx Psychiatric Treatment: No Hx Asthma: No Hx COPD: No Hx Tuberculosis: No Hx Dementia: No Hx HIV: No Additional medical history: pancreatitis, anemia GERD - Surgical History Hx Cholecystectomy: Yes - Social History Smoking Status: Current Some Day Smoker - Medications Home Medications: Home Medications Medication Instructions Recorded Confirmed Last Taken Type Magnesium Oxide [Magnesium] 400 mg PO QDAY 10/14/21 10/14/21 10/10/21 History Duloxetine HCl [Cymbalta] 60 mg PO QDAY 30 Days #30 10/15/21 Unknown Rx Gabapentin 300 mg PO TID #90 cap 10/15/21 Unknown Rx Insulin Detemir [Levemir Flextouch] 20 unit SQ HS 75 Days #5 pen 10/15/21 Unknown Rx amLODIPine 5 mg PO DAILY 30 Days #30 10/15/21 Unknown Rx traZODone [Desyrel] 50 mg PO QHS 30 Days #30 10/15/21 Unknown Rx Metoclopramide [Reglan] 10 mg PO QID PRN #30 tablet 11/04/21 Unknown Rx Pantoprazole [Protonix TAB] 40 mg PO QDAY 30 Days #30 tab 11/04/21 Unknown Rx oxyCODONE /ACETAMINOPHEN [Percocet 1 tab PO Q6H PRN #9 tablet 11/04/21 Unknown Rx 5/325 mg] ED Physical Exam - General Limitations: No Limitations General appearance: alert, in no apparent distress - Head Head exam: Present: atraumatic, normocephalic - Eye Eye exam: Present: normal appearance, EOMI. Absent: nystagmus - ENT ENT exam: Present: normal exam, normal orophraynx, mucous membranes moist, n ormal external ear exam - Neck Neck exam: Present: normal inspection, full ROM. Absent: tenderness, meningismus - Respiratory Respiratory exam: Present: normal lung sounds bilaterally. Absent: respiratory distress, wheezes, rales, rhonchi, stridor, decreased breath sounds - Cardiovascular Cardiovascular Exam: Present: regular rate, normal rhythm, normal heart sounds. Absent: bradycardia, tachycardia, irregular rhythm, systolic murmur, diastolic murmur, rubs, gallop - GI/Abdominal GI/Abdominal exam: Present: soft, tenderness (There is epigastric and left-sided abdominal tenderness). Absent: distended, guarding, rebound, rigid - Rectal Rectal exam: Present: deferred - Extremities Exam Extremities exam: Present: normal inspection, full ROM, other (2+ pulses noted in the bilateral upper and lower extremities. There is no palpable cord. negative Homans sign. Muscular compartments are soft. The pelvis is stable.). Absent: pedal edema, calf tenderness - Back Exam Back exam: Present: normal inspection. Absent: tenderness, CVA tenderness (R), CVA tenderness (L), paraspinal tenderness, vertebral tenderness - Neurological Exam Neurological exam: Present: alert, oriented X3, other (No facial droop. Tongue midline. Extraocular movements intact bilaterally. Facial sensation intact to light touch in V1, V2, V3 distribution bilaterally. 5 and a 5 strength in 4 extremities. Sensation intact to light touch in 4 extremities.). Absent: motor sensory deficit - Psychiatric Psychiatric exam: Present: flat affect - Skin Skin exam: Present: warm, dry, intact, normal color. Absent: rash ED Course Vital Signs 11/03/21 11/04/21 11/04/21 11:27 00:18 04:00 Temperature 98.1 F 98.3 F Pulse Rate 82 87 75 Respiratory 18 18 16 Rate Blood Pressure 137/72 124/86 116/78 [Right] O2 Sat by Pulse 100 99 98 Oximetry - Reevaluation(s) Reevaluation #1: 11/04/21 04:39 Differential diagnosis, including but not limited to: GERD, gastritis, hiatal hernia, chronic pancreatitis, narcotic dependence, renal colic Assessment and plan: 41-year-old gentleman, who is afebrile, with reassuring v ital signs, with no acute distress, who does not appear to be actively vomiting whatsoever. He is resting comfortably in his stretcher, and in no acute distress. His laboratory studies are reviewed and appreciated. They are essentially unremarkable, chronic thrombocytopenia likely secondary to al coholism. Lipase is unremarkable. Patient stating that only Dilaudid helps his pain. Dilaudid is not an emergency life-saving medication. Patient does not appear to be in any acute distress. I am concerned that this patient may be opioid addicted, or opioid dependent. Advised patient that we will not be administering hydromorphone/Dilaudid. Offered patient pantoprazole and haloperidol for gastritis, abdominal pain, and report of nausea and vomiting. He declined. He is still not vomiting. However, he is agreeable to oral Percocet. He has not vomited. We will obtain CT scan of the abdomen pelvis. We will reassess. 11/04/21 05:30 CT scan abdomen pelvis shows chronic findings. Urinalysis negative for acute findings. No active vomiting. Patient was able to tolerate oral Percocet. Multiple extensive discussions held with patient regarding chronic nature of chronic pancreatitis, gastritis, and need to follow-up with outpatient GI. Patient states that he is still having pain. Patient advised that he does not have an emergent medical condition present at this time. Do not have clinical question for hospitalist at this time, patient does not meet criteria for admission or hospitalization Patient states "[facility] Patient may follow-up with an outpatient primary care doctor or GI physician. Highly concerning for narcotic dependence and narcotic diverting tendencies at this time ED Medical Decision Making - Lab Data Result diagrams: 11/03/21 11:53 11/03/21 11:53 Vital Signs 11/03/21 11/04/21 11/04/21 11:27 00:18 04:00 Temperature 98.1 F 98.3 F Pulse Rate 82 87 75 Respiratory 18 18 16 Rate Blood Pressure 137/72 124/86 116/78 [Right] O2 Sat by Pulse 100 99 98 Oximetry Lab Results 11/03/21 11/03/21 Range/Units 11:53 11:53 WBC 5.1 (4.5-11.0) K/mm3 RBC 4.81 (3.65-5.03) M/mm3 Hgb 13.4 (11.8-15.2) gm/dl Hct 41.4 (35.5-45.6) % MCV 86 (84-94) fl MCH 28 (28-32) pg MCHC 33 (32-34) % RDW 18.1 H (13.2-15.2) % Plt Count 134 L (140-440) K/mm3 Sodium 138 (137-145) mmol/L Potassium 4.2 (3.6-5.0) mmol/L Chloride 98.0 (98-107) mmol/L Carbon Dioxide 28 (22-30) mmol/L Anion Gap 16 mmol/L BUN 7 L (9-20) mg/dL Creatinine 0.7 L (0.8-1.3) mg/dL Estimated GFR > 60 ml/min BUN/Creatinine Ratio 10 % Glucose 282 H (75-100) mg/dL Calcium 9.4 (8.4-10.2) mg/dL Total Bilirubin 0.20 (0.1-1.2) mg/dL AST 17 (5-40) units/L ALT 16 (7-56) units/L Alkaline Phosphatase 115 (35-129) units/L Total Protein 7.0 (6.3-8.2) g/dL Albumin 4.1 (3.9-5) g/dL Albumin/Globulin Ratio 1.4 % Lipase 46 (13-60) units/L - Radiology Data Radiology results: pending, report reviewed, image reviewed [facility] [address] [place] [address] Cat Scan Report Signed Patient: SEAMUS PUENTE JR MR #: [id number] : 1980 Acct:[id number] Age/Sex: 41 / M ADM Date: 11/03/21 Loc: ED Attending Dr: Ordering Physician: KANWAL KAY MD Date of Service: 11/04/21 Procedure(s): CT abdomen pelvis w con Accession Number(s): [id number] cc: KANWAL KAY MD CT ABDOMEN AND PELVIS WITH CONTRAST HISTORY: Acute left-sided abdominal pain. COMPARISON: 10/16/2021 TECHNIQUE: CT images of the abdomen and pelvis were obtained following administration of intravenous contrast. All CT scans at this location are performed using CT dose reduction for ALARA by means of automated exposure control. CONTRAST: 100 ml of intravenous contrast administered. FINDINGS: Lungs/bones: Lung bases appear normal Abdomen/pelvis: The liver, spleen, adrenal glands appear normal. There is a hiatal hernia. Thickening distal esophagus which is increased since prior examination slightly asymmetric to the right. Spleen appears normal. There are diffuse calcifications throughout the pancreas. Pancreatic duct dilatation the body and pancreatic neck. This was also seen in September. Appendix appears normal. Constipation seen throughout the colon. There is prominence of the left renal pelvis and proximal ureter. The mid and distal ureters are normal in size and appearance. Mildly prominent mesenteric and retroperitoneal nodes which were also seen on the prior exam. No acute bone findings are seen. IMPRESSION: 1. Chronic pancreatitis suggest with dense calcifications and pancreatic ductal dilatation 2. Diffuse thickening of the distal esophagus which is asymmetric to the right. There is also thickening of the distal stomach wall and duodenum. Findings could represent inflammatory change, nonspecific. Follow-up with upper GI examination/endoscopy as clinically indicated 3. Mild proximal left renal pelvis and proximal ureter however no obstructing stone. No perinephric inflammatory stranding. Signer Name: Mumtaz Freeman MD Signed: 11/04/2021 4:50 AM Workstation Name: [id number] Transcribed By: DARLYN Dictated By: LAURI FREEMAN MD Electronically Authenticated By: LAURI FREEMAN MD Signed Date/Time: 11/04/21449 DD/ 3 TD/TT: CT abdomen pelvis w con INDICATION: abd pain 100ml of [id number] per pt Left sided abdomen/flank pain, has had history of pancreatitis before. COMPARISON: 06/02/2015 CT TECHNIQUE: Abdominal and pelvic CT exam performed. All CT scans at this location are performed using CT dose reduction for [employer] by means of automated exposure control. FINDINGS: CT ABDOMEN and PELVIS: Lung Bases: No significant abnormality. Liver: No significant abnormality. Biliary: No significant abnormality. Spleen: No significant abnormality. Pancreas: There are calcifications throughout the pancreatic parenchyma. The pancreatic duct is dilated within the head of the pancreas to the body measuring up to 7 mm in diameter. There is abrupt cut off of the dilation of the duct in the body, but there is more mild dilation seen within the tail of the pancreas. Note to atrophy. Pancreatic ductal dilation can be seen in setting of chronic pancreatitis. There is a surrounding multilobulated cystic collection seen superior to the pancreas extending to the lesser curvature of the stomach as seen on images 56-59 series 2. This collection appears to extend posteriorly and laterally posterior to the portal vein as well, image 56 of series 2. The collection measures approximately 5 cm in greatest dimension. Adrenals: No s ignificant abnormality. Kidneys: No significant abnormality. Lymphatics: Only prominent loc hepatis and gastrohepatic lymph nodes, likely reactive. Vasculature: No significant abnormality. Bowel: Small sliding-type hiatal hernia. There is thickening of the rugae in the stomach with submucosal edema and mucosal hyperemia. Normal appendix. Diverticulosis without diverticulitis. Pelvis: No significant abnormality. Osseous Structures: No aggressive osseous lesion. Additional Findings: None IMPRESSION: 1. There is sequela of chronic pancreatitis with fluid collection seen superior to the pancreas which could represent a pseudocyst. Correlate clinically. Can obtain an EUS if indicated. If not, at least a follow to ensure stability is recommended. 2. Findings of possible gastritis which could be reactive. Signer Name: Carter Mcmillan MD Signed: 10/11/2021 3:27 PM Workstation Name: [id number] CT abdomen wo con INDICATION / CLINICAL INFORMATION: pancreatitic/cyst. TECHNIQUE: CT abdomen without contrast All CT scans at this location are performed using CT dose reduction for ALARA by means of automated exposure control. COMPARISON: 10/11/2021. FINDINGS: ABDOMEN: Given differences in technique there has no significant interval change since 10/11/2021. The pseudocyst collection identified just anterior and superior to the head of the pancreas has slightly decreased in size now measuring 1.7 cm previously about 2 cm in greatest diameter. There is again coarse calcifications throughout the pancreas consistent with sequela of chronic pancreatitis. The main pancreatic duct appears unchanged. The liver, spleen adrenal glands and kidneys appear unchanged. Prior cholecystectomy IMPRESSION: Perhaps slight interval decrease in size of the peripancreatic collection when compared to 10/11/2021 given differences in technique. Signer Name: Satish Johns MD Signed: 10/16/2021 7:48 AM Workstation Name: [employer] Critical care attestation.: If time is entered above; I have spent that time in minutes in the direct care of this critically ill patient, excluding procedure time. ED Disposition Clinical Impression: Chronic pancreatitis, Left sided abdominal pain, Abnormal computed tomography of abdomen and pelvis Disposition: 01 HOME / SELF CARE / HOMELESS Is pt being admited?: No Does the pt Need Aspirin: No Condition: Good Additional Instructions: Avoid consumption of alcohol, tobacco and smoke products. Drink 4 to 6 cups of water per day, and consume plenty of fiber, vegetables, and lean protein. Take the prescribed medications as needed and directed. CT scan abdomen pelvis showed no emergent findings which require hospitalization. Chronic pancreatitis was noted. Constipation is noted. Nonspecific inflammatory changes are noted to the stomach and esophagus. It is important to follow-up with an outpatient GI physician to have these findings further evaluated. It is important to follow-up to make certain that these findings are not secondary to tumor, cancer, malignancy. Please follow-up with an outpatient GI physician within the next month. Please follow-up with an outpatient primary care doctor within the next month. Please have outpatient primary care doctor or GI contact medical records department, to obtain copies of laboratory studies and radiology studies, to follow-up on nonemergent incidental abnormal findings. Please return to the emergency room right away with new pain, worsened pain, migration of pain, projectile vomiting, change in mental status, confusion, inability tolerate liquid feeds, new, worsened or different symptoms not present on the initial emergency room evaluation please return to the emergency room right away with new pain, worsened pain, migration of pain, projectile vomiting, change in mental status, confusion, inability tolerate liquid feeds, new, worsened or different symptoms not present on the initial emergency room evaluation Prescriptions: oxyCODONE /ACETAMINOPHEN [Percocet 5/325 mg] 1 tab PO Q6H PRN #9 tablet PRN Reason: Pain, Moderate (4-6) Pantoprazole [Protonix TAB] 40 mg PO QDAY 30 Days #30 tab Metoclopramide [Reglan] 10 mg PO QID PRN #30 tablet PRN Reason: Nausea Referrals: [facility] [Provider Group] - 3-5 Days [facility] [Provider Group] - 3-5 Days Forms: Work/School Release Form(ED)
[2021-11-04 04:00] VITALS: BP 116/78
[2021-11-04] MEDS ORDERED: oxyCODONE /ACETAMINOPHEN 5-325MG TAB PO ONE (04:06)
--- NOTE | 2021-11-04 04:54 | Cat Scan Report ---
CT ABDOMEN AND PELVIS WITH CONTRAST HISTORY: Acute left-sided abdominal pain. COMPARISON: 10/16/2021 TECHNIQUE: CT images of the abdomen and pelvis were obtained following administration of intravenous contrast. All CT scans at this location are performed using CT dose reduction for ALARA by means of automated exposure control. CONTRAST: 100 ml of intravenous contrast administered. FINDINGS: Lungs/bones: Lung bases appear normal Abdomen/pelvis: The liver, spleen, adrenal glands appear normal. There is a hiatal hernia. Thickenin g distal esophagus which is increased since prior examination slightly asymmetric to the right. Splee n appears normal. There are diffuse calcifications throughout the pancreas. Pancreatic duct dilatatio n the body and pancreatic neck. This was also seen in September. Appendix appears normal. Constipation see n throughout the colon. There is prominence of the left renal pelvis and proximal ureter. The mid and distal ureters are normal in size and appearance. Mildly prominent mesenteric and retroperitoneal no milly which were also seen on the prior exam. No acute bone findings are seen. IMPRESSION: 1. Chronic pancreatitis suggest with dense calcifications and pancreatic ductal dilatation 2. Diffuse thickening of the distal esophagus which is asymmetric to the right. There is also thicken ing of the distal stomach wall and duodenum. Findings could represent inflammatory change, nonspecifi c. Follow-up with upper GI examination/endoscopy as clinically indicated 3. Mild proximal left renal pelvis and proximal ureter however no obstructing stone. No perinephric i nflammatory stranding. Signer Name: Mumtaz rFeeman MD Signed: 11/04/2021 4:50 AM Workstation Name: [id number]
[2021-11-04 05:15] LABS: Color,Urine Colorless (Yellow)
[2021-11-04 05:17] LABS: RBC,Urine < 1.0 /HPF (0.0-6.0)
[2021-11-04 05:24] LABS: WBC,Urine < 1.0 /HPF (0.0-6.0)
== END 2021-11-04 05:35 | disposition home or self-care (01) ==
LOC: ED 10:43
DX: K86.1 Other chronic pancreatitis (principal); R10.9 Unspecified abdominal pain; R93.5 Abnormal findings on diagnostic imaging of other abdominal regions, including retroperitoneum; F17.200 Nicotine dependence, unspecified, uncomplicated; I10 Essential (primary) hypertension; Z90.49 Acquired absence of other specified parts of digestive tract; K86.81 Exocrine pancreatic insufficiency
CPT/HCPCS: 36415; 74177; 80053; 81001; 83690; 85027; 99284; Q9967